=== PATIENT | female | born 1990 | race Caucasian/White ===

== ENCOUNTER 2020-12-20 17:10 | Emergency (ER) | payer MEDICARE, OTHER ==
[~2020-12-20] VITALS: Ht 165.1 cm; Wt 99.8 kg
[~2020-12-20 17:10] MED LIST: CEPHALEXIN 500500 M3 PO; CIPROFLOXIN HC2.5 M1 OTIC; IBUPROFEN 200200 M1 PO; VENTOLIN HFA 1818 GM INH
[2020-12-20] MEDS ORDERED: CLARITIN10 MG PO (17:22)
[2020-12-20] MEDS ORDERED: LATUDA120 MG PO (17:22)
[2020-12-20] MEDS ORDERED: PROAIR HFA8.5 GM INH (17:22)
[2020-12-20 17:38] VITALS: BP 145/70
== END 2020-12-20 17:38 | disposition home or self-care (01) ==
LOC: M.ERS 17:10
DX: R09.89 Other specified symptoms and signs involving the circulatory and respiratory systems (principal); J45.909 Unspecified asthma, uncomplicated; Z76.0 Encounter for issue of repeat prescription